=== PATIENT | male | born 1950 | race Caucasian/White ===

== ENCOUNTER 2018-10-19 07:07 | Day surgery (SDC) | payer OTHER ==
[2018-10-18 09:26] VITALS: BMI 28.8
--- NOTE | 2018-10-19 08:37 | CP.SDSHP ---
Same Day Surgery H & P - History Proposed Procedure: COLONSCOPY Pre-Op Diagnosis: SEE NOTES - Previous Medical/Surgical History Endocrine/Metabolic: Diabetes Misc: Other Pain: 4.Moderate Pain - Allergies Allergies: Allergies No Known Allergies Allergy (Verified 10/19/18 07:32) - Physical Exam General Appearance: N Vital Signs: Vital Signs 10/19/18 07:37 Temperature 97.5 F L Pulse Rate 60 Respiratory 16 Rate Blood Pressure 94/57 L O2 Sat by Pulse 98 Oximetry Mental Status: Alert & Oriented x3 Neuro: WNL Heart: Other Lungs: WNL GI: Other - {Optional Preform as Required} Breast: WNL Abdomen: Other Rectal: Other Integument: WNL : WNL Ortho: WNL ENT: WNL - Impression Pt. Evaluated Today:Candidate for Anesthesia & Procedure: Yes - Date & Time Time: 08:37 Short Stay Discharge - Short Stay Discharge Admitting Diagnosis/Reason for Visit: CHANGE IN BOWEL HABIT Disposition: HOME/ ROUTINE
[2018-10-19] MEDS ORDERED: Propofol 10 mg/ml Inj (20 ML) ONE ×2 (08:40→08:54)
[2018-10-19] MEDS ORDERED: Belladonna-Phenobarbital PO STA (08:41)
[2018-10-19] MEDS ORDERED: Lactated Ringer's 500 ML IV ONE ×2 (08:42)
[2018-10-19 08:46] VITALS: O2SAT 100
[2018-10-19] MEDS ORDERED: Midazolam 2 MG/2 ML VIAL ONE (08:54)
[2018-10-19] MEDS ORDERED: Lidocaine Hydrochloride 5 ML INJ ONE (08:54)
[2018-10-19] MEDS ORDERED: Belladonna-Phenobarbital PO ONE (10:00)
[2018-10-19 13:29] VITALS: TEMP 97.1
[2018-10-19 13:39] VITALS: RESP 20
[2018-10-19 14:35] VITALS: BP 99/48; PULSE 64
== END 2018-10-19 10:55 | disposition home or self-care (01) ==
LOC: C.ENDO 07:07
PROVIDERS: ATTEND Specialist
DX: R19.4 Change in bowel habit (principal); K63.89 Other specified diseases of intestine; K58.9 Irritable bowel syndrome, unspecified
CPT/HCPCS: 45380; 82948; 88305; J2250; J2704; J7120